=== PATIENT | male | born 1990 | race Caucasian/White ===

== ENCOUNTER 2019-04-25 14:27 | Inpatient (IN) | payer MEDICAID ==
[~2019-04-25] VITALS: Ht 190.5 cm; Wt 76.4 kg
--- NOTE | ~2019-04-25 | OP ---
PATIENT NAME: JOANA KWON MEDICAL RECORD: [id number] :90 LOCATION:[id number] ADMISSION DATE:04/26/19 SURGEON: ALFREDITO DALTON MD DATE OF OPERATION: 04/26/2019 PREOPERATIVE DIAGNOSIS: Acute retrocecal appendicitis. POSTOPERATIVE DIAGNOSIS: Acute retrocecal appendicitis without evidence of abscess or perforation. PROCEDURE: Laparoscopic appendectomy. SURGEON: Alfredito Dalton MD TOP CUTTER: None. BLOOD LOSS: Minimal. ANESTHESIA: General. COMPLICATIONS: None. INDICATIONS: The patient's mother states that he really has not felt well since and in retrospect really has not felt well since February, so I wonder if he could have a smoldering case of appendicitis since then. In september have been diagnosed late due to the fact it was retrocecal appendicitis. The patient was admitted through the Emergency Room. He was started on IV antibiotics and really had not had much oral intake in 72 hours and for this reason, he was rehydrated. OPERATIVE COURSE: He was given conveyed to the operating room on 04/26/2019. General anesthesia was induced by the anesthesia staff. The abdomen was sterilely prepped and draped. A transverse incision was accomplished in the left lower quadrant. Utilizing the Optiview device, a 5-mm trocar was inserted in the left lower quadrant. Under direct internal vision utilizing television camera, a 12-mm trocar was inserted through an incision at the umbilicus. Another 5-mm trocar was inserted through an incision in the left upper quadrant. During insertion of the Veress needle and all trocars, there appeared to have been no injury to the bowels, any intraperitoneal or retroperitoneal structures. An abdominal survey was undertaken. There were some retroperitoneal attachments from the ileum to the right lower quadrant sidewall. These were taken down with endoscopic scissors. I then folded the right colon medially. Some retroperitoneal dissection was necessary with the laparoscopic EnSeal device. I identified the appendix, which was difficult to mobilize. I grasped the appendix and began to take down the mesoappendix with the laparoscopic EnSeal device. A portion of the appendix tore off and this was placed within a bag retrieval device and was withdrawn through the umbilical fascia defect. It was necessary to place another 5-mm trocar at this time in the right lower OPERATIVE REPORT [id number] JOANA KWON quadrant. This was added for additional retraction of the colon. A 12-mm trocar was replaced and the abdomen reinsufflated. I continued my dissection of the mesoappendix and again another portion of the appendix ripped away and was placed within a bag retrieval device and was withdrawn through the umbilical fascial defect. The 12-mm trocar was replaced. I was able to dissect down to the base of the appendix. I stapled across this with an Endo-KATHY type staple utilizing a blue load. The remaining portion of the appendix was placed within a bag retrieval device and was withdrawn through the umbilical fascial defect. I irrigated and aspirated the right lower quadrant as well as in the pelvis. There was no bleeding even at low pressure of 8. Cari was added to the retrocecal area for additional hemostasis. A 10-Irish fully fluted closed suction drainage system was advanced down through the left lower quadrant trocar. The 12-mm trocar was removed. Utilizing the Cristobal-Bernie suture closure device and 0-Vicryl sutures, the umbilical fascia defect was closed. All the trocars were removed and the abdomen desufflated. The skin at the umbilicus was closed with interrupted 4-0 Vicryl Rapide sutures. The other trocar sites were closed with interrupted intracuticular 3-0 Vicryls. Benzoin and Steri-Strips were applied. The patient was then extubated and conveyed to the post-anesthesia care unit where he was in stable condition. Due to the fever he has been having, I am going to leave him on IV antibiotics. Hopefully, the drain can come out tomorrow and he can be dismissed home. He may require more than 1 day of intravenous antibiotics. TRANSINT:[id number] Voice Confirmation ID: [id number] DOCUMENT ID: [id number] ALFREDITO DALTON MD CC: [id number] DICTATION DATE: 04/26/191851 SENIOR ACCOUNTS PAYABLE SPECIALIST: 04/27/19 0336 ADM IN [facility] [address] [place] [address]
[2019-04-25 15:25] LABS: BASOPHILS 0.1 % (0-2); EOSINOPHILS 0.1 % (0-7); HEMATOCRIT 45.5 % (42.0-54.0); HEMOGLOBIN 16.3 g/dL (13.5-17.5); IMMATURE GRANULOCYTES 0.2 % (0-5); LYMPHOCYTES 5.9 % (15-50); MCH 29.8 pg (26.0-34.0); MCHC 35.8 g/dL (31.0-37.0); MCV 83.2 fL (80.0-100.0); MONOCYTES 5.1 % (2-11); NEUTROPHILS 88.6 % (40-80); PLATELET COUNT 276 10x3/uL (130-400); RBC 5.47 10x6/uL (4.20-6.10); RDW 11.9 % (11.5-14.5); WBC 13.5 10x3/uL (4.8-10.8)
[2019-04-25 15:28] VITALS: BP 124/88
[2019-04-25 15:41] LABS: CALC OSMOLALITY 269 mosm/kg (275-300); CALCIUM 9.7 mg/dL (8.5-10.1); CARBON DIOXIDE 27.5 mmol/L (21.0-32.0); CHLORIDE - SERUM 95 mmol/L (98-107); GLUCOSE 102 mg/dL (74-106); POTASSIUM - SERUM 3.6 mmol/L (3.5-5.1); SODIUM 135 mmol/L (136-145); UREA NITROGEN 12 mg/dL (7-18); eGFR NON AFRICAN AMERICAN > 90 mL/min (90-120)
[2019-04-25 15:52] LABS: ALBUMIN 3.9 g/dL (3.4-5.0); ALKALINE PHOSPHATASE 120 U/L (46-116); ALT (SGPT) 57 U/L (10-68); AMYLASE - SERUM 43 U/L (25-115); BILIRUBIN - TOTAL 1.13 mg/dL (0.2-1.3); LIPASE 187 U/L (73-393); PROTEIN - SERUM 9.2 g/dL (6.4-8.2); TROPONIN-I < 0.017 ng/mL (0.000-0.060)
--- NOTE | 2019-04-25 17:17 | NUR ---
URINE SENT TO LAB AT THIS TIME.
[2019-04-25 17:21] VITALS: BP 130/80
--- NOTE | 2019-04-25 17:21 | NUR ---
PT LAYING IN BED. RESPIRATIONS ARE EVEN AND UNLABORED. NO DISTRESS NOTED. WILL CONTINUE TO MONITOR. VSS.
[2019-04-25 17:41] LABS: APPEARANCE CLEAR (CLEAR); COLOR YELLOW (YELLOW); GLUCOSE NEGATIVE (NEGATIVE); KETONE SMALL mg/dL (NEGATIVE); NITRITE NEGATIVE (NEGATIVE); PROTEIN NEGATIVE (NEGATIVE)
[2019-04-25 17:42] LABS: BILIRUBIN NEGATIVE (NEGATIVE); UROBILINOGEN NORMAL (NORMAL)
[2019-04-25 19:09] VITALS: BP 124/71
--- NOTE | 2019-04-25 19:09 | NUR ---
DR. CARUSO AT BEDSIDE AT THIS TIME.
--- NOTE | 2019-04-25 19:40 | NUR ---
MEFOXIN STOPPED AT THIS TIME.
[2019-04-26 00:30] VITALS: Ht 190.5 cm; Wt 76.4 kg
[2019-04-26 01:04] VITALS: BP 136/78
--- NOTE | 2019-04-26 01:16 | NUR ---
PATIENT HAS FEVER OF 103.1. CONSULTED WITH DOCTOR KRYSTLE. DOCTOR ORDERED TO CONTINUE TYLENOL 650MG Q 6 AND TO TAKE NO OTHER ACTIONS TO REDUCE HIS FEVER AT THIS TIME.
[2019-04-26 05:03] LABS: BASOPHILS 0.2 % (0-2); HEMATOCRIT 36.9 % (42.0-54.0); LYMPHOCYTES 13.5 % (15-50); MCH 28.6 pg (26.0-34.0); MCHC 34.4 g/dL (31.0-37.0); MCV 83.1 fL (80.0-100.0); MONOCYTES 11.4 % (2-11); NEUTROPHILS 73.9 % (40-80); RBC 4.44 10x6/uL (4.20-6.10); RDW 11.8 % (11.5-14.5)
[2019-04-26 05:14] LABS: ALKALINE PHOSPHATASE 86 U/L (46-116); BILIRUBIN - TOTAL 0.75 mg/dL (0.2-1.3); CALC OSMOLALITY 272 mosm/kg (275-300); CALCIUM 8.5 mg/dL (8.5-10.1); CARBON DIOXIDE 25.7 mmol/L (21.0-32.0); CHLORIDE - SERUM 99 mmol/L (98-107); GLUCOSE 92 mg/dL (74-106); MAGNESIUM - SERUM 2.2 mg/dL (1.8-2.4); PHOSPHOROUS 3.8 mg/dL (2.5-4.9); POTASSIUM - SERUM 3.3 mmol/L (3.5-5.1); PROTEIN - SERUM 6.9 g/dL (6.4-8.2); SODIUM 137 mmol/L (136-145); UREA NITROGEN 9 mg/dL (7-18); eGFR NON AFRICAN AMERICAN > 90 mL/min (90-120)
[2019-04-26 05:16] LABS: HEMOGLOBIN 12.7 g/dL (13.5-17.5); PLATELET COUNT 215 10x3/uL (130-400); WBC 6.2 10x3/uL (4.8-10.8)
[2019-04-26 05:18] LABS: ALBUMIN 2.9 g/dL (3.4-5.0); ALT (SGPT) 25 U/L (10-68)
[2019-04-26 05:50] VITALS: BP 130/71
--- NOTE | 2019-04-26 07:57 | NUR ---
TAKEN TO SURGERY PER BED, MOTHER PRESENT
--- NOTE | 2019-04-26 09:49 | NUR ---
FAHAD REF [id number] EXP 01/19/2024
[2019-04-26 12:15] VITALS: BP 119/69
--- NOTE | 2019-04-26 14:55 | NUR ---
1105 PT RETURNED FROM SURGERY, 4 LAP SITES COVERED WITH BANDAID, SILVIA TO SELF SUCTION, MOTHER IN ROOM, CONT TO MONITOR VITALS AND PAIN
[2019-04-26 16:09] VITALS: BP 117/68
--- NOTE | 2019-04-26 16:14 | NUR ---
PT WITH TEMP OF 103, MD DALTON AWARE, TYLENOL GIVEN
[2019-04-26 20:00] VITALS: BP 134/77
--- NOTE | 2019-04-26 20:05 | NUR ---
LYING IN BED. ALERT AND ORIENTED X4. REPORTS PAIN IN ABD 4. DILAUDID POACHER WRINGER OPERATOR IN USE. NS @ 125 MLHR INFUSING IN LT AC. BANDAID X3 NOTED TO ABD. SILVIA DRAIN TO ABD HAS BLOODY DRAINAGE IN BULB. NO EDEMA NOTED. SKIN IS PALE. SCDS IN USE BILAT. AMBULATORY. DENIES NEEDS. SR ELEVATED X2. CL IN REACH.
--- NOTE | 2019-04-26 23:33 | NUR ---
MEDICATED WITH TYLENOL FOR ELEVATED TEMP OF 100.0
[2019-04-27] VITALS: BP 129/81
[2019-04-27 04:00] VITALS: BP 124/75
[2019-04-27 06:40] LABS: ALBUMIN 3.1 g/dL (3.4-5.0); ALKALINE PHOSPHATASE 83 U/L (46-116); ALT (SGPT) 30 U/L (10-68); BILIRUBIN - TOTAL 0.63 mg/dL (0.2-1.3); CALC OSMOLALITY 272 mosm/kg (275-300); CALCIUM 9.1 mg/dL (8.5-10.1); CARBON DIOXIDE 25.7 mmol/L (21.0-32.0); CHLORIDE - SERUM 99 mmol/L (98-107); GLUCOSE 114 mg/dL (74-106); MAGNESIUM - SERUM 2.4 mg/dL (1.8-2.4); PHOSPHOROUS 3.3 mg/dL (2.5-4.9); POTASSIUM - SERUM 3.5 mmol/L (3.5-5.1); PROTEIN - SERUM 7.6 g/dL (6.4-8.2); SODIUM 137 mmol/L (136-145); UREA NITROGEN 7 mg/dL (7-18); eGFR NON AFRICAN AMERICAN > 90 mL/min (90-120)
--- NOTE | 2019-04-27 06:55 | NUR ---
ALERT AND ORIENTED, RESTING IN BED WITH EYES OPEN. POD #1 LAP APPY, 3 LAP SITES WITH BANDAIDS. SILVIA DRAIN TO LEFT SIDE. NO C/O PAIN. NO S/S OF ACUTE DISTRESS NOTED. ON 2L O2, NC. IV TO LEFT AC, NS INFUSING @ 125ML/HR. SITE PATENT WITHOUT REDNESS OR SWELLING. DILAUDID CIRCUS TRAIN SUPERVISOR MANAGING PAIN AT THIS TIME. SCDS ON. DENIES ANY NEEDS AT THIS TIME. CALL LIGHT IN REACH. WILL CONTINUE TO MONITOR.
[2019-04-27 07:00] LABS: HEMATOCRIT 39.6 % (42.0-54.0); HEMOGLOBIN 13.8 g/dL (13.5-17.5); MCH 28.6 pg (26.0-34.0); MCHC 34.8 g/dL (31.0-37.0); MCV 82.2 fL (80.0-100.0); MEAN PLATELET VOLUME 10.3 fL (7.4-10.4); NEUTROPHILS 73.3 % (40-80); PLATELET COUNT 256 10x3/uL (130-400); RBC 4.82 10x6/uL (4.20-6.10); RDW 11.7 % (11.5-14.5)
[2019-04-27 07:05] LABS: WBC 7.9 10x3/uL (4.8-10.8)
[2019-04-27 08:36] VITALS: BP 115/75
--- NOTE | 2019-04-27 12:10 | NUR ---
I have reviewed this patient and I concur with the Shift Assessment completed by the Licensed Practical Nurse today this shift.
[2019-04-27 14:44] VITALS: BP 117/65
[2019-04-27 16:36] VITALS: BP 118/76
--- NOTE | 2019-04-27 18:46 | NUR ---
ALERT AND ORIENTED. IV IN LEFT AC INFILTRATED, DISCONTINUED IV CATHETER TIP INTACT. APPLIED WARM COMPRESS. RESITED IV TO RIGHT AC, 22 GA X1 STICK. RUNNING FEVER OF 101.3, INFORMED DR. DALTON. ORDERED BLOOD CULTURES PER PHYSICIAN. DENIES ANY NEEDS AT THIS TIME. CALL LIGHT IN REACH. WILL CONTINUE TO MONITOR.
--- NOTE | 2019-04-27 20:20 | NUR ---
LYING IN BED. ALERT AND ORIENTED X4. TALKING TO FATHER. RESP EVEN AND NONLABORED. RATES PAIN IN ABD 3. BANDAID X3 NOTED TO ABD. SILVIA DRAIN NOTED TO LT ABD WITH BLOODY DRAINAGE IN BULB. NS @ 125 MLHR INFUSING IN RT AC WITHOUT DIFF. REFUSES SCDS AT THIS TIME. CRADLE PLACER DILAUDID IN USE. SR ELEVATED X2. CL IN REACH.
[2019-04-27 21:00] VITALS: BP 126/70
--- NOTE | 2019-04-28 00:10 | NUR ---
UP TO BR. BM NOTED. DENIES NEEDS. CL IN REACH.
[2019-04-28 00:13] VITALS: BP 121/79
[2019-04-28 04:00] VITALS: BP 125/77
--- NOTE | 2019-04-28 07:04 | NUR ---
PT IS RESTING IN BED WITH EYES CLOSED. RESPIRATIONS ARE EVEN AND UNLABORED. PT IS EASILY AROUSED WITH VERBAL STIMULATION. PT IS AAO X 4 UPON AROUSAL. PT DENIES PRESENCE OF PAIN/N/V AT THIS TIME. SWEET DOUGH MIXER DILAUDID INFUSIGN PER ORDER. BS HYPOACTIVE X 4. PT REPORTS THAT HE HAS HAD A BM AND IS PASSING GAS WITHOUT DIFFICULTY. BANDAIDS TO ABDOMEN X 3 ARE C/D/I. BED IS IN THE LOWEST POSITION. CALL LIGHT AND BEDSIDE TABLE ARE WITHIN REACH. SIDE RAILS X 2. PT DENIES FURTHER NEEDS. WILL CONT TO MONITOR.
[2019-04-28 08:12] VITALS: BP 123/68
[2019-04-28 13:11] VITALS: BP 110/70
[2019-04-28 16:29] VITALS: BP 95/79
--- NOTE | 2019-04-28 19:40 | NUR ---
LYING IN BED WATCHING TV. ALERT AND ORIENTED X4. TALKATIVE WITH STAFF. RATES PAIN 3 IN ABD. BANDAID X3 NOTED TO ABD. SILVIA NOTED TO LT ABD WITH SEROUS FLUID IN BULB. CONCRETE BATCH PLANT OPERATOR DILAUDID IN USE. NS @ 125 MLHR INFUSING IN LT FOREARM. AMBULATORY. REPORTS LOOSE BM TODAY. SR ELEVATED X2. CL IN REACH.
[2019-04-28 21:00] VITALS: BP 119/68
--- NOTE | 2019-04-28 23:43 | NUR ---
SILVIA DRAIN PULLED FROM LT ABD. PRESSURE DRSG APPLIED. PT RAMSES WELL. 10 ML OF SEROUS FLUID IN BULB.
[2019-04-29 00:16] VITALS: BP 110/65
[2019-04-29 05:07] VITALS: BP 122/64
--- NOTE | 2019-04-29 08:00 | NUR ---
PATIENT IN BED WITH EYES CLOSED RESTING QUIETLY. NO COMPLAINTS OR SIGNS OF DISTRESS. IV INTACT. CALL LIGHT WITHIN REACH.
[2019-04-29 08:46] VITALS: BP 113/68
--- NOTE | 2019-04-29 10:00 | NUR ---
PATIENT TOLERATED REGULAR DIET WITH NO N/V. IV INTACT. NO COMPLAINTS. CALL LIGTH WITHIN REACH.
[2019-04-29] MEDS ORDERED: FLAGYL500 MG PO (11:01)
[2019-04-29] MEDS ORDERED: HYDROCODON-ACE1 EAC7 PO (11:01)
[2019-04-29] MEDS ORDERED: COLACE100 MG PO (11:01)
[2019-04-29] MEDS ORDERED: CIPRO500 MG PO (11:01)
--- NOTE | 2019-04-29 11:35 | NUR ---
PATIENT RECIEVED DC INSTRUCTIONS. VERBALIZED UNDERSTANDING. NO QUESTIONS AT THIS TIME. IV REMOVED WITH CATH TIP INTACT. PRESCRIPTIONS GIVEN TO PATIENT. WAITING FOR TRANSPORTAION. CALL LIGHT WITHIN REACH.
== END 2019-04-29 13:41 | disposition home or self-care (01) | DRG 854 ==
LOC: D.ER 14:27 → D.MS 18:14 → OBSVTIME 19:29 → D.MS 04-26 17:34
PROVIDERS: Family Medicine; ADMIT Surgery; ATTEND Surgery
PROC: 0DTJ4ZZ Resection of Appendix, Percutaneous Endoscopic Approach (ICD-10-PCS; principal; 2019-04-26 08:00)
DX: A41.9 Sepsis, unspecified organism (principal); K35.30 Acute appendicitis with localized peritonitis, without perforation or gangrene

== ENCOUNTER 2020-02-19 21:51 | Emergency (ER) | payer MEDICAID ==
[~2020-02-19] VITALS: Ht 190.5 cm; Wt 127.3 kg
[~2020-02-19 21:51] MED LIST: CIPRO500 MG PO; COLACE100 MG PO; FLAGYL500 MG PO; HYDROCODON-ACE1 EAC7 PO
[2020-02-19 22:02] VITALS: Ht 190.5 cm; Wt 127.3 kg
[2020-02-19 23:01] LABS: BASOPHILS 0.2 % (0-2); EOSINOPHILS 2.8 % (0-7); HEMOGLOBIN 15.5 g/dL (13.5-17.5); IMMATURE GRANULOCYTES 0.1 % (0-5); LYMPHOCYTES 23.9 % (15-50); MCH 29.4 pg (26.0-34.0); MCHC 35.2 g/dL (31.0-37.0); MCV 83.3 fL (80.0-100.0); MEAN PLATELET VOLUME 10.3 fL (7.4-10.4); MONOCYTES 7.5 % (2-11); NEUTROPHILS 65.5 % (40-80); PLATELET COUNT 273 10x3/uL (130-400); RBC 5.28 10x6/uL (4.20-6.10); RDW 12.3 % (11.5-14.5); WBC 8.5 10x3/uL (4.8-10.8)
[2020-02-19 23:13] LABS: CALC OSMOLALITY 274 mosm/kg (275-300); CARBON DIOXIDE 25.9 mmol/L (21.0-32.0); CHLORIDE - SERUM 103 mmol/L (98-107); CREATININE - SERUM 1.1 mg/dL (0.6-1.3); GLUCOSE 123 mg/dL (74-106); POTASSIUM - SERUM 3.5 mmol/L (3.5-5.1); SODIUM 137 mmol/L (136-145); UREA NITROGEN 12 mg/dL (7-18); eGFR NON AFRICAN AMERICAN 84 mL/min (90-120)
[2020-02-19 23:19] LABS: ALKALINE PHOSPHATASE 101 U/L (30-120); ALT (SGPT) 39 U/L (10-68); BILIRUBIN - TOTAL 0.58 mg/dL (0.2-1.3); PROTEIN - SERUM 7.9 g/dL (6.4-8.2)
[2020-02-20 00:08] VITALS: BP 138/89
== END 2020-02-20 00:07 | disposition home or self-care (01) ==
LOC: D.ER 21:51
PROVIDERS: Family Medicine
DX: R00.2 Palpitations (principal)